=== PATIENT | male | born 1955 | race Caucasian/White ===

== ENCOUNTER 2021-12-14 23:55 | Emergency (ER) | payer OTHER, MEDICARE ==
[2021-12-15] MEDS ORDERED: HYDROmorphone 1 MG/ML Syringe IM ONE (00:04)
[2021-12-15] MEDS ORDERED: Cyclobenzaprine 10 MG Tab PO ONE (00:04)
[2021-12-15] MEDS ORDERED: Lidocaine 2% Jelly 10 ML Urojet MUCMEM ONE (00:14)
[2021-12-15] MEDS ORDERED: HYDROmorphone 1 MG/ML Syringe IVPUSH ONE (00:33)
[2021-12-15] MEDS ORDERED: Sodium Chloride 0.9% 10 ML Syringe FLUSH PRN (00:33)
== END 2021-12-15 03:30 | disposition home or self-care (01) ==
LOC: JP.ED 23:55
DX: S32.040A Wedge compression fracture of fourth lumbar vertebra, initial encounter for closed fracture (principal); Z79.899 Other long term (current) drug therapy; Z87.891 Personal history of nicotine dependence; V29.9XXA Motorcycle rider (driver) (passenger) injured in unspecified traffic accident, initial encounter; Y93.55 Activity, bike riding
CPT/HCPCS: 72100; 96374; 96376; 99283; A9270; J1170; J3490